=== PATIENT | male | born 1955 | race Two or more races ===

== ENCOUNTER → 2018-07-30 | Outpatient (CLI) | payer BC ==
--- NOTE | 2018-07-30 14:16 | RAD ---
EXAM: Abdomen sonogram. HISTORY: Elevated bilirubin. TECHNIQUE: Sonographic imaging of the abdomen was performed. COMPARISON: None. FINDINGS: The liver is enlarged. No focal hepatic lesion is seen. The gallbladder is unremarkable. The common bile duct is normal in caliber. The right kidney and pancreas are unremarkable. The inferior vena cava is patent. The aorta is not formally assessed. IMPRESSION: 1. Hepatomegaly. 2. Otherwise, unremarkable abdomen sonogram. Electronically signed by: Savanah Garcia MD (07/30/2018 2:14 PM) [id number]
== END | disposition home or self-care (01) ==
LOC: US 09:38
PROVIDERS: ATTEND Physician Assistant Medical
DX: R17 Unspecified jaundice (principal); R16.0 Hepatomegaly, not elsewhere classified
CPT/HCPCS: 76705

== ENCOUNTER → 2019-05-30 | Outpatient (CLI) | payer BC ==
--- NOTE | 2019-05-30 12:14 | RAD ---
EXAM: Maxillofacial bone CT without contrast. HISTORY: Sinusitis. TECHNIQUE: Computed tomographic images of the bilateral facial bones were obtained without contrast. *One or more of the following individualized dose reduction techniques were utilized for this examination: 1. Automated exposure control. 2. Adjustment of the mA and/or kV according to patient size. 3. Use of iterative reconstruction technique. COMPARISON: None. FINDINGS: There are findings consistent with bilateral maxillary antrostomy/uncinectomy surgery. There is no sinus opacification or air-fluid level. There is no significant nasal septal deviation. There is evidence of lens surgery. The mastoid air cells are clear. The visualized portions of the brain and calvarium are unremarkable. IMPRESSION: No evidence of acute sinusitis. Findings contrast with prior maxillary antrostomy/uncinectomy surgery. Electronically signed by: Savanah Garcia MD (05/30/2019 12:11 PM) [facility] [place]
== END | disposition home or self-care (01) ==
LOC: CT 10:59
PROVIDERS: ATTEND Physician Assistant Medical
DX: J32.8 Other chronic sinusitis (principal)
CPT/HCPCS: 70486